=== PATIENT | male | born 1985 | race Caucasian/White ===

== ENCOUNTER → 2021-01-07 | Outpatient (CLI) | payer OTHER | END | disposition home or self-care (01) | LOC: RAD 14:19 | PROVIDERS: ATTEND Nurse Practitioner Family | DX: R22.32 Localized swelling, mass and lump, left upper limb (principal); M25.571 Pain in right ankle and joints of right foot; M25.572 Pain in left ankle and joints of left foot; Z00.01 Encounter for general adult medical examination with abnormal findings ==

== ENCOUNTER 2021-02-23 16:04 | Outpatient (CLI) | payer OTHER | END 2021-02-23 23:59 | disposition home or self-care (01) | LOC: RAD 16:04 | PROVIDERS: ATTEND Nurse Practitioner Family | DX: M79.89 Other specified soft tissue disorders (principal) ==